=== PATIENT | female | born 1940 | race Caucasian/White ===

== ENCOUNTER 2017-12-12 17:48 | Inpatient (IN) | payer OTHER ==
[~2017-12-12] VITALS: Ht 152.4 cm; Wt 59.9 kg
== END 2017-12-15 10:21 | disposition home or self-care (01) | DRG 378 ==
LOC: ER 17:48 → SURH 12-13 09:48
PROC: CD171ZZ Planar Nuclear Medicine Imaging of Gastrointestinal Tract using Technetium 99m (Tc-99m) (ICD-10-PCS; principal; 2017-12-13)
DX: K92.2 Gastrointestinal hemorrhage, unspecified (principal); D62 Acute posthemorrhagic anemia; I10 Essential (primary) hypertension; J45.998 Other asthma; K21.9 Gastro-esophageal reflux disease without esophagitis

== ENCOUNTER 2018-03-21 09:50 | Emergency (ER) | payer OTHER ==
[~2018-03-21] VITALS: Ht 152.4 cm; Wt 59.9 kg
[2018-03-21] MEDS ORDERED: CARDIZEM120 MG (09:55)
[2018-03-21] MEDS ORDERED: CRESTOR10 MG (09:56)
[2018-03-21] MEDS ORDERED: DICY20TA (09:56)
[2018-03-21] MEDS ORDERED: DIOVAN160 M1 (09:56)
== END 2018-03-21 11:35 | disposition home or self-care (01) ==
LOC: ER 09:50
DX: S60.212A Contusion of left wrist, initial encounter (principal); S09.8XXA Other specified injuries of head, initial encounter; W18.09XA Striking against other object with subsequent fall, initial encounter; Y93.01 Activity, walking, marching and hiking; Y92.89 Other specified places as the place of occurrence of the external cause; Y99.8 Other external cause status

== ENCOUNTER 2018-06-21 14:16 | Outpatient (CLI) | payer OTHER ==
[~2018-06-21 14:16] MED LIST: CARDIZEM120 MG; CRESTOR10 MG; DICY20TA; DIOVAN160 M1
== END 2018-06-21 14:22 | disposition home or self-care (01) ==
LOC: MAMO-SONO 14:16
DX: Z12.31 Encounter for screening mammogram for malignant neoplasm of breast (principal); Z87.898 Personal history of other specified conditions; N64.4 Mastodynia

== ENCOUNTER 2018-06-21 15:00 | Outpatient (CLI) | payer OTHER | END 2018-06-21 15:23 | disposition home or self-care (01) | LOC: RAD 15:00 | DX: M16.0 Bilateral primary osteoarthritis of hip (principal) ==

== ENCOUNTER 2018-09-12 13:59 | Emergency (ER) | payer OTHER ==
[~2018-09-12] VITALS: Ht 152.4 cm; Wt 59.4 kg
[2018-09-12] MEDS ORDERED: PROTONIX40 MG PO (14:24)
== END 2018-09-12 17:41 | disposition home or self-care (01) ==
LOC: ER 13:59
DX: S60.012A Contusion of left thumb without damage to nail, initial encounter (principal); S80.02XA Contusion of left knee, initial encounter; S80.01XA Contusion of right knee, initial encounter; W18.09XA Striking against other object with subsequent fall, initial encounter; Y93.89 Activity, other specified; Y92.238 Other place in hospital as the place of occurrence of the external cause; Y99.8 Other external cause status